=== PATIENT | male | born 1960 | race Caucasian/White ===

== ENCOUNTER → 2017-06-15 | Outpatient (CLI) | payer BC, OTHER ==
--- NOTE | 2017-06-15 21:51 | DIAGNOSTIC IMAGING REPORT ---
MRI CERVICAL WITHOUT CONTRAST CLINICAL HISTORY: CERVICAL SPINE PAIN TECHNIQUE: Sagittal and axial T1, T2 and STIR images were obtained. COMPARISON STUDY: No previous studies for comparison. There are no suspicious areas of marrow replacement. No intrinsic cervical cord lesions are visualized. C2-3: There is no evidence of disc bulge or focal herniation. There is no spinal or foraminal stenosis. C3-4: There is no evidence of disc bulge or focal herniation. There is no spinal or foraminal stenosis. C4-5: There are no disc bulges or focal herniations. There is no spinal or foraminal stenosis. C5-6 :There is a minimal circumferential disc bulge. There is slight effacement of the anterior thecal sac. Significant spinal stenosis is not felt to be present C6-7: There is a minimal circumferential disc bulge. There is no significant spinal or foraminal stenosis C7-T1: There is no evidence of disc bulge or focal herniation. There is no evidence of spinal or foraminal stenosis. IMPRESSION:Minor degenerative changes with minimal disc bulges the C5-6 and C6-7 levels. No focal herniations identified. No evidence of significant spinal or foraminal stenosis. Electronically signed by: Eyad Calero M.D. 06/15/2017 9:50 PM Dictated Date/Time: 06/15/2017 9:44 PM
== END | disposition home or self-care (01) ==
LOC: C.MRI 20:50
PROVIDERS: ATTEND Internal Medicine
DX: M54.2 Cervicalgia (principal)